=== PATIENT | female | born 1945 | race Caucasian/White ===

== ENCOUNTER 2022-12-20 02:21 | Emergency (ER) | payer OTHER ==
--- OUTSIDE RECORDS SUMMARY | 2022-12-20 02:24 | XMS REPORT | Continuity of Care Document ---
:1945 Author Organization [facility] t Address [address] [facility] [address] [place] [address] Care Team Providers Name Role Phone Marylu Gregory MD Primary Care Physician [phone] JOSÉ MIGUEL CORDOBA Attending Clinician Unavailable YOSELIN NEAL Attending Clinician Unavailable Yoselin Lopez Attending Clinician Kaylyn Gee RN Attending Clinician Unavailable OANH AUSTIN Attending Clinician Unavailable Andi Wilcox MD Attending Clinician Oanh Austin MD Attending Clinician LEISA SANFORD Attending Clinician Unavailable LEISA SANFORD Attending Clinician Unavailable Leias Sanford MD Attending Clinician Therapist, Adc Occup Attending Clinician Unavailable Gerson Benz Attending Clinician Doctor Unassigned, [place] Attending Clinician Unavailable Chilo Roberts MD Attending Clinician CHILO ROBERTS Attending Clinician Unavailable BRIANA GAO Attending Clinician Unavailable LAB90 Attending Clinician Unavailable Marylu Gregory MD Attending Clinician OANH AUSTIN Admitting Clinician Unavailable Oanh Austin MD Admitting Clinician CHILO ROBERTS Admitting Clinician Unavailable Payers Payer Name Policy Type Policy Number Effective Date Expiration Date S [place] [id number] 2022spring 00:00:00 [employer] GENERIC [id number] 2022 2022 00:00:00 00:00:00 MICHAEL BADILLO O 7 [id number] 2020 00:00:00 Problems Condition Condition Condition Status Onset Resolution Last Treating Co mments Source Name Details Category Date Date Treatment Clinician Date Cerebrovas Cerebrovas Disease Active 2022-03 U nivers cular cular 0-02 ity of accident accident 00:00: [place] (CVA) 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 Medi adam to to 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 [facility] Disease Active 2022-03 Unive rs discharge discharge 0-02 [place] of [place] Primary Primary Disease Active 2022-03 Univers hypertensi hypertensi 0-02 it y of on on 00:00: [place] 00 Medical Branch Altered Altered Disease Active Univers mental mental 9-28 ity of status, status, 00:00: [place] unspecifie unspecifie 00 Me dical d altered d altered Bran ch mental mental status status type type Allergies, Adverse Reactions, Alerts Allergy Allergy Status Severity Reaction(s) Onset Inactive Treating Comm ents Source Name Type Date Date Clinician NO KNOWN Drug Active Univers ALLERGIE Class ity of [facility] Social History Social Habit Start Date Stop Date Quantity Comments Source Sexual orientation [facility] Exposure to 2022-06-10 2022-06-20 Not sure [facility] SARS-CoV-2 (event) 00:00:00 13:31:00 Medica l Branch History of Social 2022-05-04 2022-05-04 [facility]00 Medical Branch Sex Ass[birth year] At [birth year] [facility] [place] [facility] Medical Branch Smoking Status Start Date Stop Date Source Tobacco smoking consumption Univ [facility] Medical unknown Branch Medications Ordered Filled Start Stop Current Ordering Indication Dosage Frequency Signature Comments Components Source Medication Medication Date Date Medication? Clinician (SIG) Name Name lisinopriL 2022-03 Yes [id number] 10mg Take 1 Univers 10 mg 0-02 tablet by ity of tablet 00:00: mouth in [place] [address] the morning. Branch carvediloL 2022-03 Yes [id number] 6.25mg Take 1 Univers 6.25 mg 0-02 tablet by ity of tablet 00:00: mouth in [place] [address] the [facility] morning [place] and 1 tablet in the evening. Take with meals. atorvastati 2022-03 Yes [id number] 40mg Take 1 Univers n 40 mg 0-02 tablet by ity of tablet 00:00: mouth at [place] [address] [address] [facility] apixaban 5 2022-03 Yes 1348 5mg Take 1 Unive rs mg tablet 0-02 tablet by ity o f 00:00: mouth in [place] [address] the [facility] morning [place] and 1 tablet in the evening. Indication s: paroxysmal atrial fibrillati on lisinopriL 2022-03 Yes [id number] 10mg Take 1 Univers 10 mg 0-02 tablet by ity of tablet 00:00: mouth in [place] [address] the morning. [place] carvediloL 2022-03 Yes [id number] 6.25mg Take 1 Univers 6.25 mg 0-02 tablet by ity of tablet 00:00: mouth in [place] [address] the [facility] and 1 tablet in the evening. Take with meals. atorvastati 2022-03 Yes [id number] 40mg Take 1 Univers n 40 mg 0-02 tablet by ity of tablet 00:00: mouth at [place] [address] [address] [facility] apixaban 5 2022-03 Yes 1348 5mg Take 1 Unive rs mg tablet 0-02 tablet by ity o f 00:00: mouth in [address] and 1 tablet in the evening. Indication s: paroxysmal atrial fibrillati on aspirin EC Yes 81mg 81 mg, Unive rs tablet 81 9-30 Oral, ity of mg 14:00: DAILY, [place] 00 First dose Medical on [facility] 12/17/22 at 0900, Until Discontinu ed, Routine lisinopriL Yes 10mg 10 mg, Unive rs (PRINIVIL,Z 9-30 Oral, ity of ESTRIL) 14:00: DAILY, [place] tablet 10 00 First dose Medi adam mg (after [place] last modificati on) on [facility] 12/17/22 at 0900, Until Discontinu ed, Routine atorvastati 0 Yes 40mg 40 mg, Univ ers n (LIPITOR) 9-30 Oral, QHS, it y of tablet 40 02:00: [place] 00 on Mon12/16/22 at [place] 2100, Until Discontinu ed, Routine aspirin 81 2022-0 Yes [id number] 81mg Take 1 Univers mg EC 9-30 tablet by ity of tablet 00:00: mouth in [place] 00 the Medical morning. [place] aspirin 81 0 Yes [id number] 81mg Take 1 Univers mg EC 9-30 tablet by ity of tablet 00:00: mouth in [place] 00 the Medical morning. [place] aspirin 81 0 Yes [id number] 81mg Take 1 Univers mg EC 9-30 tablet by ity of tablet 00:00: mouth in [place] 00 the Medical morning. [place] aspirin 81 0 Yes [id number] 81mg Take 1 Univers mg EC 9-30 tablet by ity of tablet 00:00: mouth in [place] 00 the Medical morning. [place] lisinopriL 0 2022- Yes [id number] 10mg Take 1 Univers 10 mg 9-30 10-31 tablet by ity of tablet 00:00: 04:59 mouth in [place] 00 :00 the [facility] for 30 days. lisinopriL 0 2022- Yes [id number] 10mg Take 1 Univers 10 mg 9-30 10-31 tablet by ity of tablet 00:00: 04:59 mouth in [place] 00 :00 [facility] morning [place] for 30 days. lisinopriL 0 2022- No [id number] 10mg Take 1 Univers 10 mg 9-30 10-02 tablet by ity of tablet 00:00: 00:00 mouth in [place] 00 :00 [facility] morning [place] for 30 days. lisinopriL 2022-0 2022- No [id number] 10mg Take 1 Univers 10 mg 9-30 10-02 tablet by ity of tablet 00:00: 00:00 mouth in [place] 00 :00 [facility] morning [place] for 30 days. carvediloL 2022-0 Yes 6.25mg 6.25 mg, U nivers (COREG) 9-29 Oral, BID ity of tablet 6.25 00:00: [place]ALS, [place] 00 First dose Medical on [place] [facility] 12/15/22 at 1900, [facility] at[facility] 2022- Yes [id number] 40mg Take 1 Univers n 40 mg 9-29 10-30 tablet by ity of tablet 00:00: 04:59 mouth at [place] 00 :00 bedtime Medical for 30 Branch days. carvediloL 2022- Yes [id number] 6.25mg Take 1 Univers 6.25 mg 9-29 10-30 tablet by ity of tablet 00:00: 04:59 mouth in [place] 00 :00 the Medical morning Branch and 1 tablet in the evening. Take with meals. Do all this for 30 days. apixaban 5 2022- Yes 1348 5mg Take 1 Univ ers mg tablet 9-29 10-30 tablet by ity of 00:00: 04:59 mouth in [place] 00 :00 the Medical morning Branch and 1 tablet in the evening. Do all this for 30 days. Indication s: paroxysmal atrial fibrillati on atorvastati 2022- Yes [id number] 40mg Take 1 Univers n 40 mg 9-29 10-30 tablet by ity of tablet 00:00: 04:59 mouth at [place] 00 :00 bedtime Medical for 30 Branch days. carvediloL 2022- Yes [id number] 6.25mg Take 1 Univers 6.25 mg 9-29 10-30 tablet by ity of tablet 00:00: 04:59 mouth in [place] 00 :00 the Medical morning Branch and 1 tablet in the evening. Take with meals. Do all this for 30 days. apixaban 5 2022- Yes 1348 5mg Take 1 Univ ers mg tablet 9-29 10-30 tablet by ity of 00:00: 04:59 mouth in [place] 00 :00 the Medical morning Branch and 1 tablet in the evening. Do all this for 30 days. Indication s: paroxysmal atrial fibrillati on atorvastati 2022- No [id number] 40mg Take 1 Univers n 40 mg 9-29 10-02 tablet by ity of tablet 00:00: 00:00 mouth at [place] 00 :00 bedtime Medical for 30 Branch days. carvediloL 2022- No [id number] 6.25mg Take 1 Univers 6.25 mg 12-16 tablet by ity of tablet 00:00: 00:00 mouth in [place] 00 :00 [facility] and 1 tablet in the evening. Take with meals. Do all this for 30 days. apixaban 5 2022- No 1348 5mg Take 1 Univ ers mg tablet 12-16 tablet by ity of 00:00: 00:00 mouth in [place] 00 :00 [facility] and 1 tablet in the evening. Do all this for 30 days. Indication s: paroxysmal atrial fibrillati on atorvastati 2022- No [id number] 40mg Take 1 Univers n 40 mg 12-16 tablet by ity of tablet 00:00: 00:00 mouth at [place] 00 :00 bedtime Medical for 30 Branch days. carvediloL 2022-2022- No [id number] 6.25mg Take 1 Univers 6.25 mg 12-16 tablet by ity of tablet 00:00: 00:00 mouth in [place] 00 :00 [facility] and 1 tablet in the evening. Take with meals. Do all this for 30 days. apixaban 5 2022- No 1348 5mg Take 1 Univ ers mg tablet 12-16 tablet by ity of 00:00: 00:00 mouth in [place] 00 :00 [facility] and 1 tablet in the evening. Do all this for 30 days. Indication s: paroxysmal atrial fibrillati on lisinopriL 2022- No 20mg 20 mg, Univ ers (PRINIVIL,Z 12-16 Oral, ity of ESTRIL) 00:00: 13:54 DAILY, [place] tablet 20 00 :37 First dose Medi adam mg on [facility] Branch 12/15/22 at 1900, Until Discontinu ed, Routine ondansetron Yes 4mg 4 mg, Slow Univers (ZOFRAN 12-15 IV Push, ity of (PF)) 23:48: Q6HPRN, [place] injection 4 38 Starting Medi adam mg on [facility] Branch 12/15/22 at 1848, Until Discontinu ed, Routine, Nausea and Vomiting (N/V) morpHINE (2 2022- Yes 2mg 2 mg, Slow Univers mg/mL) 12-15 IV Push, ity of injection 2 23:48: 23:47 Q4HPRN, [place] mg 31 :31 Starting Medical on [place] 12/15/22 at 1848, Until 12/16/22 at 1847, Routine, Pain (scale 7-10) HYDROcodone 2022-0 2022- Yes 1{tbl} 1 tablet, Univers -acetaminop 12-15 Oral, ity of hen (NORCO 23:48: 23:47 Q6HPRN, Shahid as 5) 5-325 mg 28 :28 Starting Medi adam tablet 1 on [facility] tablet 12/15/22 at 1848, Until 12/17/22 at 1847, Routine, Pain (scale 4-6) acetaminoph Yes 650mg 650 mg, Un obdulio en 12-15 Oral, ity of (TYLENOL) 23:48: Q6HPRN, [place] tablet 650 22 Starting Medic al mg on [facility] Branch 12/15/22 at 1848, Until Discontinu ed, Routine, Pain (scale 1-3), Temp > 38 C hydralAZINE Yes 10mg 10 mg, Univ ers (APRESOLINE 12-15 Slow IV ity o f ) injection 23:45: Push, [place] 10 mg 13 Q4HPRN, Medical Starting Branch on [place] 12/15/22 at 1845, Until Discontinu ed, Routine, DBP=>10 0; SBP=>180 labetaloL 2022- No 10mg 10 mg, Unive rs (NORMODYNE) 12-15 Slow IV ity of injection 22:15: 23:01 Push, [place] 10 mg 00 :00 ONCE, 1 Medical dose, On Branch [place] 12/15/22 at 1715, LILLY iopamidol 2022- No [id number] 80mL 80 mL, Univers (ISOVUE 12-15 Intravenou ity o f 370-500 mL) 21:30: 21:30 s, ONCE, 1 [place] injection 00 :00 dose, On Medica l 80 mL [place] Branch 9/28/23 at 1630, Routine traMADoL 2022-0 Yes [id number] 50mg Take 1 Univers (ULTRAM) 50 1-31 tablet by ity of mg tablet 00:00: mouth [place] 00 every 6 Medical (six) Branch hours as needed for Pain (scale 7-10). Indication s: acute pain traMADoL 2022-0 Yes [id number] 50mg Take 1 Univers (ULTRAM) 50 1-31 tablet by ity of mg tablet 00:00: mouth [place] 00 every 6 Medical (six) Branch hours as needed for Pain (scale 7-10). Indication s: acute pain traMADoL 2022-0 Yes [id number] 50mg Take 1 Univers (ULTRAM) 50 1-31 tablet by ity of mg tablet 00:00: mouth [place] 00 every 6 Medical (six) Branch hours as needed for Pain (scale 7-10). Indication s: acute pain traMADoL 2022-0 Yes [id number] 50mg Take 1 Univers (ULTRAM) 50 1-31 tablet by ity of mg tablet 00:00: mouth [place] 00 every 6 Medical (six) Branch hours as needed for Pain (scale 7-10). Indication s: acute pain traMADoL 2022-0 Yes [id number] 50mg Take 1 Univers (ULTRAM) 50 1-31 tablet by ity of mg tablet 00:00: mouth [place] 00 every 6 Medical (six) Branch hours as needed for Pain (scale 7-10). Indication s: acute pain traMADoL 2022-0 Yes [id number] 50mg Take 1 Univers (ULTRAM) 50 1-31 tablet by ity of mg tablet 00:00: mouth [place] 00 every 6 Medical (six) Branch hours as needed for Pain (scale 7-10). Indication s: acute pain traMADoL 2022-0 Yes [id number] 50mg Take 1 Univers (ULTRAM) 50 1-31 tablet by ity of mg tablet 00:00: mouth [place] 00 every 6 Medical (six) Branch hours as needed for Pain (scale 7-10). Indication s: acute pain traMADoL 2022-0 Yes [id number] 50mg Take 1 Univers (ULTRAM) 50 1-31 tablet by ity of mg tablet 00:00: mouth [place] 00 every 6 Medical (six) Branch hours as needed for Pain (scale 7-10). Indication s: acute pain traMADoL 2022-0 Yes [id number] 50mg Take 1 Univers (ULTRAM) 50 1-31 tablet by ity of mg tablet 00:00: mouth [place] 00 every 6 Medical (six) Branch hours as needed for Pain (scale 7-10). Indication s: acute pain traMADoL 0 Yes 4647 50mg Take 1 Univers (ULTRAM) 50 1-31 tablet by ity of mg tablet 00:00: mouth [place] 00 every 6 Medical (six) Branch hours as needed for Pain (scale 7-10). Indication s: acute pain traMADoL 0 Yes 4647 50mg Take 1 Univers (ULTRAM) 50 1-31 tablet by ity of mg tablet 00:00: mouth [place] 00 every 6 Medical (six) Branch hours as needed for Pain (scale 7-10). Indication s: acute pain traMADoL 0 Yes 4647 50mg Take 1 Univers (ULTRAM) 50 1-31 tablet by ity of mg tablet 00:00: mouth [place] 00 every 6 Medical (six) Branch hours as needed for Pain (scale 7-10). Indication s: acute pain traMADoL 0 Yes 4647 50mg Take 1 Univers (ULTRAM) 50 1-31 tablet by ity of mg tablet 00:00: mouth [place] 00 every 6 Medical (six) Branch hours as needed for Pain (scale 7-10). Indication s: acute pain traMADoL 0 Yes 4647 50mg Take 1 Univers (ULTRAM) 50 1-31 tablet by ity of mg tablet 00:00: mouth [place] 00 every 6 Medical (six) Branch hours as needed for Pain (scale 7-10). Indication s: acute pain traMADoL 0 Yes 4647 50mg Take 1 Univers (ULTRAM) 50 1-31 tablet by ity of mg tablet 00:00: mouth [place] 00 every 6 Medical (six) Branch hours as needed for Pain (scale 7-10). Indication s: acute pain traMADoL 0 2022- No 4647 50mg Take 1 Univer s (ULTRAM) 50 1-31 09-29 tablet by it y of mg tablet 00:00: 00:00 mouth [place] 00 :00 every 6 Medical (six) Branch hours as needed for Pain (scale 7-10). Indication s: acute pain No known No No known Kelse y medications 5-16 medication Se ybold 08:12: s 03 Vital Signs Vital Name Observation Time Observation Value Comments Source Systolic blood 2022-12-19 20:16:00 128 mm[Hg] Univer sity of pressure [place] [facility] Diastolic blood 2022-12-19 20:16:00 75 mm[Hg] Unive rsity of pressure [place] [facility] Heart rate 2022-12-19 20:13:00 67 /min Universi ty of [place] [facility] Body temperature 2022-12-19 20:13:00 36.61 Meron Univ ersity of [place] [facility] Body height 2022-12-19 20:13:00 163.8 cm Universi ty of [place] [facility] Body weight 2022-12-19 20:13:00 59.875 kg Universi ty of [place] [facility] BMI 2022-12-19 20:13:00 22.31 kg/m2 Universi ty of [place] [facility] Oxygen saturation in 2022-12-19 20:13:00 100 /min University of Arterial blood by [facility] Pulse oximetry Branch Systolic blood 2022-12-16 18:00:00 144 mm[Hg] Univer sity of pressure [place] [facility] Diastolic blood 2022-12-16 18:00:00 77 mm[Hg] Unive rsity of pressure [place] [facility] Heart rate 2022-12-16 18:00:00 68 /min Universi ty of [place] [facility] Oxygen saturation in 2022-12-16 18:00:00 98 /min University of Arterial blood by [facility] Pulse oximetry Branch Body temperature 2022-12-16 17:00:00 37 Meron Univ ersity of [place] [facility] Respiratory rate 2022-12-16 15:00:00 19 /min Univ ersity of [place] [facility] Body weight 2022-12-16 09:00:00 59.467 kg Universi ty of [place] [facility] BMI 2022-12-16 09:00:00 22.50 kg/m2 Universi ty of [place] [facility] Body height 2022-12-16 01:14:00 162.6 cm Universi ty of [place] [facility] Systolic blood 2022-06-20 18:38:00 157 mm[Hg] Univer sity of pressure [place] [facility] Diastolic blood 2022-06-20 18:38:00 79 mm[Hg] Unive rsity of pressure [place] [facility] Heart rate 2022-06-20 18:38:00 70 /min Universi ty of [place] [facility] Body height 2022-06-20 18:38:00 162.6 cm Universi ty of [place] [facility] Body weight 2022-06-20 18:38:00 60.782 kg Universi ty of [place] [facility] BMI 2022-06-20 18:38:00 23.00 kg/m2 Universi ty of [place] [facility] Body height 2022-05-20 15:55:00 162.6 cm Universi ty of [place] [facility] Body weight 2022-05-20 15:55:00 60.782 kg Universi ty of [place] [facility] BMI 2022-05-20 15:55:00 23.00 kg/m2 Universi ty of [place] [facility] Branch Body weight 2022-05-12 14:41:00 60.782 kg Universi ty of [place] [facility] Branch BMI 2022-05-12 14:41:00 23.00 kg/m2 Universi ty of [facility] Body height 2022-05-12 14:41:00 162.6 cm Universi ty of [place] [facility] Branch Body height 2022-05-04 19:23:00 162.6 cm Universi ty of [place] [facility] Body weight 2022-05-04 19:23:00 60.782 kg Universi ty of [place] [facility] Branch BMI 2022-05-04 19:23:00 23.00 kg/m2 Universi ty of [place] [facility] Branch Systolic blood 2022-04-20 01:06:00 165 mm[Hg] Univer sity of pressure [facility] Diastolic blood 2022-04-20 01:06:00 78 mm[Hg] Unive rsity of [facility] Heart rate 2022-04-20 01:05:00 96 /min Universi ty of [place] [facility] Branch Body temperature 2022-04-20 01:05:00 37 Meron Univ ersity of [place] [facility] Branch Respiratory rate 2022-04-20 01:05:00 18 /min Univ ersity of [facility] Body height 2022-04-20 01:05:00 162.6 cm Universi ty of [place] [facility] Branch Body weight 2022-04-20 01:05:00 60.782 kg Universi ty of [place] [facility] Branch BMI 2022-04-20 01:05:00 23.00 kg/m2 Universi ty of [place] [facility] Oxygen saturation in 2022-04-20 01:05:00 100 /min University of Arterial blood by [facility] Pulse oximetry Branch Heart rate 2021-08-02 13:09:00 81 /min Lay dimas Body temperature 2021-08-02 13:09:00 37.67 Meron Rossy Landon Respiratory rate 2021-08-02 13:09:00 14 /min Rossy L[place] Body height 2021-08-02 13:09:00 162.6 cm Lay dimas Body weight 2021-08-02 13:09:00 60.691 kg Lay dimas BMI 2021-08-02 13:09:00 22.97 kg/m2 Lay dimas Oxygen saturation in 2021-08-02 13:09:00 99 /min Lay Landon Arterial blood by Pulse oximetry Systolic blood 2021-08-02 13:09:00 143 mm[Hg] Lay Seybold pressure Diastolic blood 2021-08-02 13:09:00 86 mm[Hg] Kelse y Seybold pressure Procedures Procedure Date / Time Performing Clinician Source Performed MR BRAIN WO CONTRAST 2022-12-16 16:30:22 Oanh Austin [facility] ASSIGNMENT OF BENEFITS 2022-12-15 21:05:05 Doctor Unassigned, No [facility] Name [facility] URINALYSIS 2022-12-15 20:39:00 Andi Wilcox [place] o [facility] URINE DRUG (IMMUNOASSAY) 2022-12-15 20:39:00 Andi Wilcox [facility] SCREEN W/O REFLEX CT ANGIOGRAM HEAD 2022-12-15 20:24:00 Andi Wilcox [facility] CT ANGIOGRAM NECK 2022-12-15 20:24:00 Andi Wilcox [facility] CT HEAD WO CONTRAST 2022-12-15 20:20:00 Andi Wilcox [facility] TROPONIN I 2022-12-15 19:36:00 Andi Wilcox [place] o f [facility] COMP. METABOLIC PANEL 2022-12-15 19:36:00 Andi Wilcox [facility] ([id number]) Medical Branch ETHANOL 2022-12-15 19:36:00 Andi Wilcox [facility] CBC WITH DIFF 2022-12-15 19:36:00 Andi Wilcox [facility] PROTHROMBIN TIME / INR 2022-12-15 19:36:00 Andi Wilcox [facility] ACTIVATED PARTIAL 2022-12-15 19:36:00 Andi Wilcox [facility] THRMPLAS [facility] CONSENT/REFUSAL FOR 2022-12-15 19:12:42 Doctor Unassigned, [place] [facility]3] CRITICAL CARE 2022-12-15 19:12:00 Andi Wilcox [facility] ASSIGNMENT OF BENEFITS 2022-05-04 19:19:39 Doctor Unassigned, No [facility] NOTICE OF PRIVACY 2022-04-20 01:00:00 Doctor Unassigned, No Univ [facility] PRACTICES [facility]3] CONSENT/REFUSAL FOR 2022-04-20 00:59:13 Doctor Unassigned, [place] [facility] [place] [facility] Encounters Start End Encounter Admission Attending Care Care Encounter Source Date/Time Date/Time Type Type Clinicians Facility Department ID 2022-12-19 2022-12-19 Outpatient R DIXIE [facility] [id number] Univers 15:00:00 15:54:57 YOSELIN almonte [facility] 2022-12-19 2022-12-19 Office Dixie [facility] [id number] Univers 15:00:00 15:54:57 Visit Yoselin [facility] [id number] it y of [place] [id number] Shahid as FRANNY?BLEA [id number] [address] MEDICAL OFFICE BUILDING 2022-12-19 2022-12-19 Transition WANDA Gee [id number] Univers 00:00:00 00:00:00 of Care Kaylyn KOLB [id number] [id number] [id number] [place] [id number] Branch 2022-12-15 2022-12-16 Inpatient X ANATOLIY [facility] [id number] Univers 14:26:00 14:00:00 OANH [facility] 2022-12-15 2022-12-16 Hospital Andi Wilcox [facility] [id number] Univers 14:26:00 14:00:00 Encounter Oanh [place] [id number] ity [facility] [id number] [place] [id number] [facility] [address] [place] 2022-06-20 2022-06-20 Outpatient R LEISA SANFORD [facility] [id number] Univers 13:38:52 23:59:00 JUVENALLEISA [facility] 2022-06-20 2022-06-20 Office [facility] [id number] Univers 14:00:00 17:23:11 Visit [facility] [id number] it y of [place] 4.2.7.2.686 Shahid as FRANNY?BLEA [id number] Ny katheirnliliya ANGULO [address] [facility] OFFICE [facility] 2022-06-17 2022-06-17 Letter [facility] [id number] Univers 00:00:00 00:00:00 (Out) Adc Occup [place] [id number] ity [facility] [id number] [place] [facility] [id number] Ny dical TAYLER [address] [facility] 2022-06-13 2022-06-13 Outpatient R [facility] [id number] Univers 11:00:00 11:00:00 ity of [facility] 2022-05-25 2022-05-25 Telephone [facility] [id number] Univers 00:00:00 00:00:00 Gerson [facility] [id number] it y of [place] [id number] Shahid as FRANNY?BLEA [id number] Ny dicliliya [place]O [address] [facility] OFFICE [facility] 2022-05-23 2022-05-23 Telephone [facility] [id number] Univers 00:00:00 00:00:00 Leisa ORTEZ [id number] it y of [place] [id number] Shahid as FRANNY?BLEA [id number] Ny dejon [place] [address] [facility] OFFICE [facility] 2022-05-20 2022-05-20 Outpatient R JUVENAL [facility] [id number] Univers 10:00:00 23:59:00 LEISA almonte [facility] 2022-05-20 2022-05-20 [facility] [id number] Univers 10:00:00 10:28:32 Visit Leisa ORTEZ [id number] it y of [place] [id number] Shahid as FRANNY?BLEA [id number] [facility] 2022-05-12 2022-05-12 [facility] [id number] Univers 09:00:00 09:06:33 LEISA almonte [facility] 2022-05-12 2022-05-12 [facility] [id number] Univers 09:00:00 09:06:33 Visit Leisa ORTEZ [id number] it y of [place] [id number] Shahid as FRANNY?BLEA [id number] Ny dejon ANGULO [address] [place] [address] 2022-05-04 2022-05-04 Outpatient R LEISA [facility] [id number] Univers 13:30:00 23:59:00 LEISA [facility]ORD [facility] 2022-05-04 2022-05-04 [facility] [id number] Univers 13:30:00 13:54:42 Visit Leisa ORTEZ [id number] it y of [place] 4.2.7.2.686 Shahid as FRANNY?BLEA [id number] Ny dejon ANGULO [address] [place] [address] OFFICE [facility] 2022-05-04 2022-05-04 Orders Doctor KINGSLEY [id number] Univers 00:00:00 00:00:00 Only Unassigned, MELANIE [id number] ity of [place] [facility] [id number] Shahid as [phone] [facility] [address] 2022-04-28 2022-04-28 Telephone Juvenal [facility] [id number] Univers 00:00:00 00:00:00 Leisa [facility] [id number] it y of [place] [id number] Shahid as FRANNY?BLEA [id number] Ny dicliliya [address] MED[facility] 2022-04-19 2022-04-19 Emergency [facility] [id number] Univers 19:08:00 21:32:00 Chilo GOMEZ [id number] ity of [place].2.[place] [id number] [facility] [address] [place] 2022-04-19 2022-04-19 Emergency X [facility] ERT [id number] Univers 19:08:00 21:32:00 CHILO ity of [facility] 2021-12-16 2021-12-16 Outpatient LAY GAO [id number] Lay 00:00:00 00:00:00 BRIANA ambrose 2021-12-16 2021-12-16 Outpatient LAY GAO [id number] Lay 00:00:00 00:00:00 LASBHARAT Dixono halie 2021-08-09 2021-08-09 Outpatient LAB90 LAY SIMMONS [id number] Lay 08:30:00 08:30:00 Seybol d 2021-08-02 2021-08-02 Office Rony Gregory [id number] Lay 08:15:00 09:00:00 Visit Marylu Zamora [id number] Se jason Thompson [id number] Results This patient has no known results.
[2022-12-20 03:08] LABS: Protime INR 1.23
[2022-12-20 03:10] LABS: Hematocrit 35.4 % (36.0-45.0); Lymphocytes % 32.9 % (15.3-44.8); MCV 89.7 fL (80-100); MPV 7.2 fL (7.6-11.3); Platelets 266 thou/uL (152-406); RBC Red Blood Cell Count 3.94 M/uL (3.86-4.86)
[2022-12-20 03:30] LABS: ALT/SGPT 20 U/L (13-56); Alkaline Phosphatase 74 U/L (45-117); BUN Blood Urea Nitrogen 20 mg/dL (7-18); Bicarbonate 27 mEq/L (21-32); Bilirubin Total 0.5 mg/dL (0.2-1.0); Glomerular Filtration Rate 71 ml/min (=/>90); Glucose Level 99 mg/dL (74-106); NT PRO-BNP 142 pg/mL (<450); Protein, Total 6.5 g/dL (6.4-8.2); Sodium Level 139 mEq/L (136-145); Troponin High Sensitivity 8.9 pg/mL (<58.9)
[2022-12-20 03:31] LABS: AST/SGOT 17 U/L (15-37); Bilirubin Direct < 0.1 mg/dL (0-0.2); Bilirubin Indirect, Calculated ND mg/dL (0.2-0.8); Potassium 4.2 mEq/L (3.5-5.1)
--- NOTE | 2022-12-20 04:00 | ER ---
Nurse's Notes [facility] Name: Lianne Gramjao Age: 77 yrs Sex: Female : 1945 Arrival Date: 12/20/2022 Time: 02:21 Bed 15 Private MD: Diagnosis: Hypotension, resolved Presentation: 12/20 02:32 Chief complaint: Patient states: "I couldn't sleep. I just am not feeling well. I took as6 my blood pressure at home and it was really high". Coronavirus screen: At this time, the client does not indicate any symptoms associated with coronavirus-19. Ebola Screen: No symptoms or risks identified at this time. Initial Sepsis Screen: Does the patient meet any 2 criteria? No. Patient's initial sepsis screen is negative. Does the patient have a suspected source of infection? No. Patient's initial sepsis screen is negative. Risk Assessment: Do you want to hurt yourself or someone else? Patient reports no desire to harm self or others. Onset of symptoms was December 20, 2022. 02:32 Acuity: KRYSTINA 3 as6 02:32 Method Of Arrival: Ambulatory as6 Historical: - Allergies: 02:32 No Known Allergies; as6 - PMHx: 02:32 Hypertensive disorder; Cerebrovascular accident; as6 - PSHx: 02:32 section; as6 - Immunization history:: Adult Immunizations up to date. - Social history:: Smoking status: Patient denies any tobacco usage or history of. Screenin:35 [facility] ED Fall Risk Assessment (Adult) Score/Fall Risk Level 0 - 2 = Low Risk. Abuse as6 screen: Denies threats or abuse. Denies injuries from another. Nutritional screening: No deficits noted. Tuberculosis screening: No symptoms or risk factors identified. Assessment: 02:35 General: Appears in no apparent distress. comfortable, well groomed, well developed, pf1 Behavior is calm, cooperative, appropriate for age, quiet. 02:35 Pain: Denies pain. Neuro: No deficits noted. Level of Consciousness is awake, alert, pf1 obeys commands, Oriented to person, place, time, situation, Reports Patient stated upon awakening,onset 0200 was feeling weird and could not sleep, checked BP 230/87.. Cardiovascular: No deficits noted. Capillary refill < 3 seconds Patient's skin is warm and dry. Respiratory: No deficits noted. Airway is patent Respiratory effort is even, unlabored, Respiratory pattern is regular, symmetrical. GI: No deficits noted. No signs and/or symptoms were reported involving the gastrointestinal system. : No deficits noted. No signs and/or symptoms were reported regarding the genitourinary system. EENT: No deficits noted. No signs and/or symptoms were reported regarding the EENT system. Derm: No deficits noted. No signs and/or symptoms reported regarding the dermatologic system. 03:30 Reassessment: Patient appears in no apparent distress at this time. Patient and/or pf1 family updated on plan of care and expected duration. Pain level reassessed. Patient states symptoms have improved. 04:00 Reassessment: Patient appears in no apparent distress at this time. Patient and/or pf1 family updated on plan of care and expected duration. Pain level reassessed. Patient states feeling better. Patient states symptoms have improved. Vital Signs: 02:32 BP 172 / 78; Pulse 65; Resp 16 S; Temp 97.3(O); Pulse Ox 100% on R/A; Weight 58.97 kg as6 (R); Height 5 ft. 4 in. (R); Pain 0/10; 02:45 BP 136 / 75; Pulse 61; Resp 16; Pulse Ox 100% on R/A; Pain 0/10; pf1 03:30 BP 143 / 68; Pulse 64; Resp 17; Pulse Ox 100% on R/A; Pain 0/10; pf1 04:30 BP 137 / 69; Pulse 62; Resp 16; Pulse Ox 100% on R/A; Pain 0/10; pf1 02:32 Body Mass Index 22.31 (58.97 kg, 162.56 cm) as6 02:32 Pain Scale: Adult as6 02:45 Pain Scale: Adult pf1 03:30 Pain Scale: Adult pf1 04:30 Pain Scale: Adult pf1 ED Course: 02:23 Patient arrived in ED. mr 02:35 Triage completed. as6 02:35 Shaista Link MD is Attending Physician. sp3 02:35 Arm band placed on. as6 02:35 Bed in low position. Call light in reach. as6 02:45 No provider procedures requiring assistance completed. Inserted saline lock: 20 gauge pf1 in right antecubital area, using aseptic technique. Blood collected. 02:48 Basic Metabolic Panel Sent. pf1 02:48 CBC with Diff Sent. pf1 02:48 LFT's Sent. pf1 02:48 Magnesium Sent. pf1 02:48 NT PRO-BNP Sent. pf1 02:48 PT-INR Sent. pf1 02:48 Troponin HS Sent. pf1 03:13 Basic Metabolic Panel Sent. kmf 03:13 CBC with Diff Sent. kmf 03:13 LFT's Sent. kmf 03:13 Magnesium Sent. kmf 03:13 NT PRO-BNP Sent. kmf 03:13 Troponin HS Sent. kmf 03:30 XRAY Chest (1 view) In Process Unspecified. EDMS 04:31 CT Head Brain wo Cont In Process Unspecified. EDMS 04:56 IV discontinued, intact, bleeding controlled, No redness/swelling at site. Pressure pf1 dressing applied. 04:58 Provided Education on: follow up. pf1 Administered Medications: No medications were administered Medication: 02:35 VIS not applicable for this client. as6 Outcome: 04:00 Discharge ordered by . sp3 04:45 Discharge ordered by MD. sp3 04:57 Discharged to home ambulatory, with family, pf1 04:57 Condition: improved 04:57 Discharge instructions given to patient, Instructed on discharge instructions, follow up and referral plans. Demonstrated understanding of instructions, follow-up care, 04:58 Patient left the ED. pf1 Signatures: Dispatcher [employer] AMADOUMT Beatriz Talavera, Reg Reg Shaista Black MD MD sp3 Masoud Calderón RN RN as6 Livia Arana RN RN pf1 Lay Quick kmf
--- NOTE | 2022-12-20 04:00 | EDPHYS ---
Physician Documentation [facility] Name: Lianne Gramajo Age: 77 yrs Sex: Female : 1945 Arrival Date: 12/20/2022 Time: 02:21 Bed 15 Private MD: ED Physician Shaista Link HPI: 12/20 03:53 This 77 yrs old Female presents to ER via Ambulatory with complaints of High Blood sp3 Pressure. 03:53 77-year-old female with history of hypertension, recent diagnosis of a past CVA, now sp3 presents to the ED with chief complaint blood pressure that was 220/120 at home without any symptoms other than "an uneasy feeling" prompted her to come to the ED for further evaluation. Patient denies having any headache, chest pain, shortness of breath abdominal pain, low back pain, numbness or tingling, weakness, gait abnormality, speech abnormality, change in senses including vision and hearing, or any other signs or symptoms on ROS at this time. Currently all symptoms are resolved. Patient is not on any anticoagulants other than antiplatelet agents.. Historical: - Allergies: 02:32 No Known Allergies; as6 - PMHx: 02:32 Hypertensive disorder; Cerebrovascular accident; as6 - PSHx: 02:32 section; as6 - Immunization history:: Adult Immunizations up to date. - Social history:: Smoking status: Patient denies any tobacco usage or history of. ROS: 03:56 Constitutional: Negative for fever, chills, and weight loss, Eyes: Negative for injury, sp3 pain, redness, and discharge, ENT: Negative for injury, pain, and discharge, Neck: Negative for injury, pain, and swelling, Cardiovascular: Negative for chest pain, palpitations, and edema, Respiratory: Negative for shortness of breath, cough, wheezing, and pleuritic chest pain, Abdomen/GI: Negative for abdominal pain, nausea, vomiting, diarrhea, and constipation, Back: Negative for injury and pain, MS/Extremity: Negative for injury and deformity, Skin: Negative for injury, rash, and discoloration, Neuro: Negative for headache, weakness, numbness, tingling, and seizure, Psych: Negative for depression, anxiety, suicide ideation, homicidal ideation, and hallucinations, Allergy/Immunology: Negative for hives, rash, and allergies, Endocrine: Negative for neck swelling, polydipsia, polyuria, polyphagia, and marked weight changes, Hematologic/Lymphatic: Negative for swollen nodes, abnormal bleeding, and unusual bruising, 03:56 All other systems are negative, Exam: 03:56 Constitutional: This is a well developed, well nourished patient who is awake, alert, sp3 and in no acute distress. Head/Face: Normocephalic, atraumatic. Eyes: Pupils equal round and reactive to light, extra-ocular motions intact. Lids and lashes normal. Conjunctiva and sclera are non-icteric and not injected. Cornea within normal limits. Periorbital areas with no swelling, redness, or edema. ENT: Nares patent. No nasal discharge, no septal abnormalities noted. External auditory canals are clear. Oropharynx with no redness, swelling, or masses, exudates, or evidence of obstruction, uvula midline. Mucous membranes moist. Neck: Trachea midline, no thyromegaly or masses palpated, and no cervical lymphadenopathy. Supple, full range of motion without nuchal rigidity, or vertebral point tenderness. No Meningismus. Chest/axilla: Normal chest wall appearance and motion. Nontender with no deformity. No lesions are appreciated. Cardiovascular: Regular rate and rhythm with a normal S1 and S2. No gallops, murmurs, or rubs. Normal PMI, no JVD. No pulse deficits. Respiratory: Lungs have equal breath sounds bilaterally, clear to auscultation and percussion. No rales, rhonchi or wheezes noted. No increased work of breathing, no retractions or nasal flaring. Abdomen/GI: Soft, non-tender, with normal bowel sounds. No distension or tympany. No guarding or rebound. No evidence of tenderness throughout. Back: No spinal tenderness. No costovertebral tenderness. Full range of motion. Skin: Warm, dry with normal turgor. Normal color with no rashes, no lesions, and no evidence of cellulitis. MS/ Extremity: Pulses equal, no cyanosis. Neurovascular intact. Full, normal range of motion. Neuro: Awake and alert, GCS 15, oriented to person, place, time, and situation. Cranial nerves II-XII grossly intact. Motor strength 5/5 in all extremities. Sensory grossly intact. Cerebellar exam normal. Normal gait. Psych: Awake, alert, with orientation to person, place and time. Behavior, mood, and affect are within normal limits. 03:56 ECG was reviewed by the Attending Physician. EKG demonstrates normal sinus rhythm at 60 bpm with normal intervals, normal QRS, normal axis, normal ST/T-segment's without evidence of acute ischemia. Vital Signs: 02:32 BP 172 / 78; Pulse 65; Resp 16 S; Temp 97.3(O); Pulse Ox 100% on R/A; Weight 58.97 kg as6 (R); Height 5 ft. 4 in. (R); Pain 0/10; 02:45 BP 136 / 75; Pulse 61; Resp 16; Pulse Ox 100% on R/A; Pain 0/10; pf1 03:30 BP 143 / 68; Pulse 64; Resp 17; Pulse Ox 100% on R/A; Pain 0/10; pf1 04:30 BP 137 / 69; Pulse 62; Resp 16; Pulse Ox 100% on R/A; Pain 0/10; pf1 02:32 Body Mass Index 22.31 (58.97 kg, 162.56 cm) as6 02:32 Pain Scale: Adult as6 02:45 Pain Scale: Adult pf1 03:30 Pain Scale: Adult pf1 04:30 Pain Scale: Adult pf1 MDM: 02:35 Patient medically screened. sp3 03:57 Data reviewed: vital signs, nurses notes, lab test result(s), EKG, radiologic studies. sp3 ED course: 77-year-old female with now resolved symptoms of hypertension and "uneasy feeling". Patient has not had any other clinical manifestations of CVA or NM. EKG does not raise concern. Blood pressure is is now resolved. Clinically adenopathy patient is having a TIA/CVA, ACS/NM spectrum, aortic pathology including dissection or aneurysm, or any other critical pathology at this time. Patient is able to converse and laugh during interview and is in absolutely no acute distress whatsoever. Patient is also on Eliquis so as a precaution we will obtain CT scan of the head and if negative we will safely discharge her home.. 12/20 02:32 Order name: Basic Metabolic Panel; Complete Time: 03:35 as6 12/20 02:32 Order name: CBC with Diff; Complete Time: 03:35 as6 12/20 02:32 Order name: LFT's; Complete Time: 03:35 as6 12/20 02:32 Order name: Magnesium; Complete Time: 03:35 as6 12/20 02:32 Order name: NT PRO-BNP; Complete Time: 03:35 as6 12/20 02:32 Order name: PT-INR; Complete Time: 03:35 as12/20 02:32 Order name: Troponin HS; Complete Time: 03:35 as12/20 02:32 Order name: XRAY Chest (1 view) as12/20 04:05 Order name: CT Head Brain wo Cont sp3 12/20 02:32 Order name: EKG; Complete Time: 02:33 as12/20 02:32 Order name: Cardiac monitoring; Complete Time: 02:47 12/20 02:32 Order name: EKG - Nurse/Tech; Complete Time: 02:47 as12/20 02:32 Order name: IV Saline Lock; Complete Time: 02:48 12/20 02:32 Order name: Labs collected and sent; Complete Time: 02:48 12/20 02:32 Order name: O2 Per Protocol; Complete Time: 02:38 as12/20 02:32 Order name: O2 Sat Monitoring; Complete Time: 02:38 as6 Administered Medications: No medications were administered Disposition Summary: 12/20/22 04:45 Discharge Ordered Notes: Location: Home(12/20/22 04:45) sp3 Condition: Stable(12/20/22 04:45) sp3 Diagnosis - Hypotension, resolved sp3 Followup: sp3 - With: Private Physician - When: Upon discharge from the Emergency Department - Reason: Continuance of care Discharge Instructions: - Discharge Summary Sheet sp3 - Hypertension, Adult sp3 Forms: - Work release form bd - Medication Reconciliation Form sp3 - Thank You Letter sp3 - Antibiotic Education sp3 - Prescription Opioid Use sp3 - Patient Portal Instructions sp3 - Leadership Thank You Letter sp3 Signatures: Dispatcher [employer] EDShaista Magana MD MD sp3 Masoud Calderón, SMILEY RN as6 Corrections: (The following items were deleted from the chart) 04:04 04:00 Home sp3 sp3 04:04 04:00 Stable sp3 sp3 04:04 04:00 Hypertension now resolved sp3 sp3 04:05 03:57 ED course: 77-year-old female with now resolved symptoms of hypertension and sp3 "uneasy feeling". Patient has not had any other clinical manifestations of CVA or NM. EKG does not raise concern. Blood pressure is is now resolved. Clinically adenopathy patient is having a TIA/CVA, ACS/NM spectrum, aortic pathology including dissection or aneurysm, or any other critical pathology at this time. Patient is able to converse and laugh during interview and is in absolutely no acute distress whatsoever. I offered her CT scan of the head as a precaution but she kindly declines at this time. She acknowledges that she will return if she has any headache or any signs of CVA at all. 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 Given this along with normal vital signs currently and normal neurological exam, we will safely discharge patient home at this time.. sp3
[2022-12-20 05:17] VITALS: TEMP 97.3; O2SAT 100
[2022-12-20 05:34] VITALS: BP 137/69
--- NOTE | 2022-12-20 12:50 | EKG ---
Test Date: 2022-12-20 Test Time: 02:38:04 Communication Consultant: SAURABH MEASUREMENT RESULTS: Intervals: Rate: 59 DE: 152 QRSD: 80 QT: 432 QTc: 427 [place]: P: 48 DE: 152 QRS: 30 T: 26 INTERPRETIVE STATEMENTS: Sinus bradycardia Anteroseptal infarct, age undetermined Abnormal ECG No previous ECG available for comparison Electronically Signed On 12-20-22 12:48:19 CDT by Henrique Kothari
--- NOTE | 2022-12-20 18:22 | RAD REPORT ---
EXAM DESCRIPTION: CT - Head Brain Wo Cont - 12/20/2022 6:47 am CLINICAL HISTORY: The patient is 77 years old and is Female; HTN [facility] MAIN TECHNIQUE: Axial computed tomography images of the head/brain without intravenous contrast. Sagitt al and coronal reformatted images were created and reviewed. This CT exam was performed using one o r more of the following dose reduction techniques: automated exposure control, adjustment of the mA and/or kV according to patient size, and/or use of iterative reconstruction technique. COMPARISON: No relevant prior studies available. FINDINGS: BRAIN: Unremarkable. No extra-axial fluid collection. No intracranial hemorrhage. No transtentorial herniation. No focal howe-white matter differentiation abnormality. MIDLINE SHIFT: No midline shift. VENTRICLES: Unremarkable. No ventriculomegaly. BONES/JOINTS: Unremarkable. No fracture of the calvarium or visualized facial bones. SOFT TISSUES: Unremarkable. SINUSES: Unremarkable as visualized. No acute sinusitis. MASTOID AIR CELLS: Unremarkable as visualized. No mastoid effusion. IMPRESSION: No acute intracranial abnormality. Electronically signed by: Eugene José MD 12/20/2022 4:40 AM CDT Due to temporary technical issues with the PACS/Fluency reporting system, reports are being signed by the in house radiologists without review as a courtesy to insure prompt reporting. The interpreting radiologist is fully responsible for the content of the report
--- NOTE | 2022-12-20 18:51 | RAD REPORT ---
EXAM DESCRIPTION: RAD - Chest Single View - 12/20/2022 3:28 am CLINICAL HISTORY: The patient is 77 years old and is Female; CHEST PAIN TECHNIQUE: Single view of the chest. COMPARISON: No relevant prior studies available. FINDINGS: Lungs: No pulmonary vascular congestion or consolidation. Pleural space: Unremarkable. No pneumothorax. Heart: Unremarkable. No cardiomegaly. Mediastinum: Unremarkable. Bones/joints: No acute fracture visualized. Upper abdomen: No free air in the visualized upper abdomen. IMPRESSION: No acute cardiopulmonary process identified. Electronically signed by: Rosa Arizmendi MD 12/20/2022 4:03 AM CDT Due to temporary technical issues with the PACS/Fluency reporting system, reports are being signed by the in house radiologists without review as a courtesy to insure prompt reporting. The interpreting radiologist is fully responsible for the content of the report
== END 2022-12-20 04:58 | disposition home or self-care (01) ==
LOC: ER 02:21
DX: I10 Essential (primary) hypertension (principal); Z86.73 Personal history of transient ischemic attack (TIA), and cerebral infarction without residual deficits
CPT/HCPCS: 36415; 70450; 71045; 80048; 80076; 83735; 83880; 84484; 85025; 85610; 93005; 99284